=== PATIENT | female | born 1960 | race Two or more races ===

== ENCOUNTER 2021-01-04 15:46 | Emergency (ER) | payer OTHER, MEDICAID ==
[~2021-01-04] VITALS: Ht 162.6 cm; Wt 58.0 kg
[2021-01-04 15:48] VITALS: BP 127/74
[2021-01-04] MEDS ORDERED: DIPHENHYDRAMINE 25MG CAPSULE PO ONE (20:45)
[2021-01-04] MEDS ORDERED: DIPH25TA62 MT (21:19)
== END 2021-01-04 22:20 | disposition home or self-care (01) ==
LOC: ER 15:46
DX: S80.862A Insect bite (nonvenomous), left lower leg, initial encounter (principal); W57.XXXA Bitten or stung by nonvenomous insect and other nonvenomous arthropods, initial encounter; Y93.89 Activity, other specified; Y92.89 Other specified places as the place of occurrence of the external cause; Y99.8 Other external cause status
CPT/HCPCS: 99282; Q0163

== ENCOUNTER 2021-09-05 14:11 | Emergency (ER) | payer OTHER ==
[~2021-09-05] VITALS: Ht 157.5 cm; Wt 59.0 kg
[~2021-09-05 14:11] MED LIST: DIPH25TA62 MT
[2021-09-05] MEDS ORDERED: TETANUS, DIPHTHERIA, PERTUSSIS VAC/PF 0.5ML (>10YR OLD) IM ONE (16:15)
[2021-09-05] MEDS ORDERED: IBUPROFEN 600MG TABLET PO ONE (16:15)
[2021-09-05] MEDS ORDERED: BACITRACIN ZINC OINT UDPKT TOP ONE (16:15)
[2021-09-05] MEDS ORDERED: IBUP-2029 MT (16:19)
[2021-09-05] MEDS ORDERED: CEPH500C2 MT (17:14)
[2021-09-05 17:43] VITALS: BP 132/88
== END 2021-09-05 17:45 | disposition home or self-care (01) ==
LOC: ER 14:11
DX: L03.011 Cellulitis of right finger (principal); E89.0 Postprocedural hypothyroidism
CPT/HCPCS: 90471; 90715; 99283

== ENCOUNTER 2021-09-08 10:18 | Emergency (ER) | payer OTHER ==
[~2021-09-08] VITALS: Ht 165.1 cm; Wt 77.0 kg
[~2021-09-08 10:18] MED LIST changes: +CEPH500C2 MT; +IBUP-2029 MT
[2021-09-08 10:20] VITALS: BP 138/75
[2021-09-08] MEDS ORDERED: BACITRACIN ZINC OINT UDPKT TOP ONE (11:15)
== END 2021-09-08 11:35 | disposition home or self-care (01) ==
LOC: ER 10:18
DX: S61.219D Laceration without foreign body of unspecified finger without damage to nail, subsequent encounter (principal); X58.XXXD Exposure to other specified factors, subsequent encounter
CPT/HCPCS: 99281